=== PATIENT | female | born 1985 | race Two or more races ===

== ENCOUNTER 2018-03-22 20:08 | Emergency (ER) | payer OTHER ==
[~2018-03-22] VITALS: Ht 157.5 cm; Wt 77.1 kg
[2018-03-22 20:26] VITALS: BP 121/65
[2018-03-22] MEDS ORDERED: LIDOCAINE W/ EPINEPHRINE 2% INJ 20ML VIAL IJ ONE (21:00)
[2018-03-22] MEDS ORDERED: TETANUS-DIPTH-ACEL PERTUSSIS 0.5ML SYRG IM ONE (21:00)
== END 2018-03-22 21:38 | disposition home or self-care (01) ==
LOC: ER 20:08
DX: S61.211A Laceration without foreign body of left index finger without damage to nail, initial encounter (principal); W26.9XXA Contact with unspecified sharp object(s), initial encounter; Y93.89 Activity, other specified; Y99.8 Other external cause status; Y92.89 Other specified places as the place of occurrence of the external cause
CPT/HCPCS: 12001; 90471; 90715

== ENCOUNTER 2018-07-09 12:53 | Emergency (ER) | payer OTHER ==
[~2018-07-09] VITALS: Ht 157.5 cm; Wt 68.0 kg
[2018-07-09] MEDS ORDERED: ASPirin 81 mg TAB PO ONE (15:45)
[2018-07-09 16:29] LABS: Basophils # (auto) 0.1 uL; Basophils % (auto) 0.5 % (0.0-2.0); Eosinophils # (auto) 0.1 uL; Hematocrit 43.8 % (36.0-46.0); Hemoglobin 14.6 g/dL (12.2-16.2); Lymphocytes % (auto) 18.3 % (10.0-50.0); Mean Corpuscular Hemoglobin 30.7 pg (28.0-32.0); Mean Corpuscular Hgb Conc. 33.4 g/dL (32.0-36.0); Mean Corpuscular Volume 91.8 fL (80.0-100.0); Monocytes # (auto) 0.6 uL; Neutrophils # (auto) 8.4 uL; Neutrophils % (auto) 75.2 % (37.0-80.0); Platelet Count (auto) 312 10^3/uL (140-450); Red Blood Cells 4.77 10^6/uL (4.0-5.20); Red Cell Distribution Width 12.9 % (11.8-14.3); White Blood Cell 11.1 10^3/uL (4.4-10.8)
[2018-07-09 16:41] LABS: Alanine Aminotransferase 42 U/L (13-56); Albumin 4.1 g/dL (3.4-5.0); Anion Gap 7 (5-15); Aspartate Aminotransferase 30 U/L (15-37); BUN/Creatinine Ratio 13.5; Blood Urea Nitrogen 10 mg/dL (7-18); Calcium 9.4 mg/dL (8.5-10.1); Carbon Dioxide 27 mmol/L (21-32); Chloride 106 mmol/L (98-107); GFR African American 119 mL/min; GFR Non-African American 98 mL/min; Glucose 95 mg/dL (74-106); Potassium 3.8 mmol/L (3.5-5.1); Sodium 140 mmol/L (136-145)
[2018-07-09 16:45] LABS: Alkaline Phosphatase 80 U/L (45-117); Bilirubin, Total 0.4 mg/dL (0.2-1.0); Total Protein 8.5 g/dL (6.4-8.2)
[2018-07-09 16:58] LABS: INR 0.98 (0.9-1.15); Prothrombin Time 10.5 sec (9.27-12.13)
[2018-07-09] MEDS ORDERED: SUMAtriptan SUCCINATE 25 MG TAB PO ONE (21:00)
[2018-07-09] MEDS ORDERED: HYDROcodone-ACET 5/325MG TAB PO ONE (21:00)
[2018-07-09 21:59] VITALS: BP 120/72
== END 2018-07-09 22:16 | disposition home or self-care (01) ==
LOC: ER 12:53 → EDBD 12:53 → ER 22:16
DX: R51 Headache (principal); R41.3 Other amnesia; R42 Dizziness and giddiness
CPT/HCPCS: 36415; 70450; 80053; 84484; 85025; 85610; 85730

== ENCOUNTER 2020-01-27 12:18 | Emergency (ER) | payer OTHER ==
[~2020-01-27] VITALS: Ht 157.5 cm; Wt 76.2 kg
[2020-01-27 12:59] LABS: Urine Bacteria FEW /hpf (None Seen); Urine Blood Negative /uL (Negative); Urine Specific Gravity 1.004 (1.001-1.035); Urine WBC 2 /hpf (0 - 5)
[2020-01-27 13:37] LABS: Basophils # (auto) 0.1 10 ^3/uL (0-0.2); Basophils % (auto) 0.7 % (0.0-2.0); Eosinophils # (auto) 0.3 10 ^3/uL (0-0.8); Eosinophils % (auto) 3.1 % (0.0-7.0); Hematocrit 43.9 % (36.0-46.0); Hemoglobin 14.8 g/dL (12.2-16.2); Lymphocytes # (auto) 2.6 10 ^3/uL (0.4-5.4); Lymphocytes % (auto) 25.5 % (10.0-50.0); Mean Corpuscular Hemoglobin 30.7 pg (28.0-32.0); Mean Corpuscular Hgb Conc. 33.8 g/dL (32.0-36.0); Mean Corpuscular Volume 90.9 fL (80.0-100.0); Monocytes # (auto) 0.6 10 ^3/uL (0-1.3); Monocytes % (auto) 5.5 % (0.0-12.0); Neutrophils # (auto) 6.6 10 ^3/uL (1.6-8.6); Neutrophils % (auto) 65.2 % (37.0-80.0); Platelet Count (auto) 319 10^3/uL (140-450); Red Blood Cells 4.83 10^6/uL (4.0-5.20); Red Cell Distribution Width 12.8 % (11.8-14.3); White Blood Cell 10.1 10^3/uL (4.4-10.8)
[2020-01-27 13:57] LABS: Albumin 4.3 g/dL (3.4-5.0); BUN/Creatinine Ratio 10.1; Calcium 9.7 mg/dL (8.5-10.1); Potassium 3.3 mmol/L (3.5-5.1)
[2020-01-27 14:03] LABS: Bilirubin, Total 0.6 mg/dL (0.2-1.0); Total Protein 8.3 g/dL (6.4-8.2)
[2020-01-27 15:33] VITALS: BP 122/79
== END 2020-01-27 15:41 | disposition home or self-care (01) ==
LOC: ER 12:18
DX: K76.0 Fatty (change of) liver, not elsewhere classified (principal); K80.20 Calculus of gallbladder without cholecystitis without obstruction
CPT/HCPCS: 36415; 74176; 80053; 81001; 81025; 85025

== ENCOUNTER → 2020-03-08 | Day surgery (SDC) | payer OTHER ==
[2020-03-02 09:42] LABS: Urine Bacteria FEW /hpf (None Seen); Urine Blood Negative /uL (Negative); Urine Mucus FEW (None Seen); Urine Specific Gravity 1.025 (1.001-1.035); Urine WBC 16 /hpf (0 - 5)
[2020-03-02 09:56] LABS: INR 1.06 (0.9-1.15); Partial Thromboplastin Time 29.2 sec (23.0-31.2)
[2020-03-02 10:02] LABS: Basophils # (auto) 0.1 10 ^3/uL (0-0.2); Basophils % (auto) 0.8 % (0.0-2.0); Eosinophils # (auto) 0.3 10 ^3/uL (0-0.8); Eosinophils % (auto) 3.8 % (0.0-7.0); Hematocrit 44.3 % (36.0-46.0); Hemoglobin 14.6 g/dL (12.2-16.2); Lymphocytes # (auto) 2.2 10 ^3/uL (0.4-5.4); Lymphocytes % (auto) 26.7 % (10.0-50.0); Monocytes # (auto) 0.6 10 ^3/uL (0-1.3); Monocytes % (auto) 7.1 % (0.0-12.0); Neutrophils % (auto) 61.6 % (37.0-80.0); Nucleated Red Blood Cells % 0.4 %; Platelet Count (auto) 353 10^3/uL (140-450); Red Blood Cells 4.87 10^6/uL (4.0-5.20); Red Cell Distribution Width 12.5 % (11.8-14.3); White Blood Cell 8.2 10^3/uL (4.4-10.8)
[2020-03-02 10:03] LABS: Albumin 4.1 g/dL (3.4-5.0); Calcium 9.6 mg/dL (8.5-10.1); Potassium 3.9 mmol/L (3.5-5.1)
[2020-03-02 10:08] LABS: BUN/Creatinine Ratio 13.7; Bilirubin, Total 0.6 mg/dL (0.2-1.0); Total Protein 7.8 g/dL (6.4-8.2)
[~2020-03-08] VITALS: Ht 157.5 cm; Wt 73.9 kg
[~2020-03-08] MED LIST: BUPIVACAINE 0.25% INJ 50ML VIAL ONE; GLYCOPYRROLATE 0.2 MG/ML 1ML VIAL ONE; HEPARIN SODIUM (PORCINE) 5000 UNITS/ML 1ML VIAL ONE; HYDROmorphone HCL 2 MG/ML VL IV ONE; HYDROmorphone HCL 2 MG/ML VL IV PRN; IBUP600T27 PO; KETOROLAC TROMETH 30 MG/ML 1ML VIAL ONE; LIDOCAINE 1% (LOCAL ANESTH.) PF 5ml SDV ONE; LIDOCAINE W/ EPINEPHRINE 1% 20ML VIAL ONE; METOCLOPRAMIDE HCL 5MG/ml INJ 2ml VIAL ONE; MIDAZOLAM HCL 1MG/1ML-2 ML VIAL ONE; NALOXONE HCL 0.4 MG/ML VIAL IV PRN; NEOSTIGMINE 1 MG/ML INJ (10mg/10ML VIAL) ONE; ONDANSETRON HCL 4 MG/2 ML VIAL IV ONE; ONDANSETRON HCL 4 MG/2 ML VIAL IV PRN; PROPOFOL 10 MG/ML 20 ML IV ONE; ROCURONIUM 10MG/ML 10ML VIAL IV ONE; SUCCINYLCHOLINE CHLORIDE 20 MG/ML 10ML VIAL IV ONE; TRAM50TA2 PO; ceFAZolin 1GM/50ML 50 ML IV ONE; fentaNYL CITRATE 100 MCG/2 ML VL ONE
[2020-03-08 09:50] VITALS: BP 128/68
== END | disposition home or self-care (01) ==
LOC: SUR 06:00
PROVIDERS: ATTEND Surgery
DX: K80.10 Calculus of gallbladder with chronic cholecystitis without obstruction (principal); E66.9 Obesity, unspecified; K21.9 Gastro-esophageal reflux disease without esophagitis; Z98.890 Other specified postprocedural states; Z79.899 Other long term (current) drug therapy; Z20.828 Contact with and (suspected) exposure to other viral communicable diseases; Z68.29 Body mass index [BMI] 29.0-29.9, adult
CPT/HCPCS: 36415; 47562; 80053; 81001; 84702; 85025; 85610; 85730; 86850; 86900; 86901; J0330; J0690; J1170; J1644; J1885; J2250; J2405; J2704; J2765; J3010; J3490; U0003

== ENCOUNTER 2022-11-21 13:50 | Observation (INO) | payer OTHER ==
[~2022-11-21 13:50] MED LIST changes: -BUPIVACAINE 0.25% INJ 50ML VIAL ONE; -GLYCOPYRROLATE 0.2 MG/ML 1ML VIAL ONE; -HEPARIN SODIUM (PORCINE) 5000 UNITS/ML 1ML VIAL ONE; -HYDROmorphone HCL 2 MG/ML VL IV ONE; -HYDROmorphone HCL 2 MG/ML VL IV PRN; +IBUP-1454 PO; -IBUP600T27 PO; -KETOROLAC TROMETH 30 MG/ML 1ML VIAL ONE; -LIDOCAINE 1% (LOCAL ANESTH.) PF 5ml SDV ONE; -LIDOCAINE W/ EPINEPHRINE 1% 20ML VIAL ONE; -METOCLOPRAMIDE HCL 5MG/ml INJ 2ml VIAL ONE; -MIDAZOLAM HCL 1MG/1ML-2 ML VIAL ONE; -NALOXONE HCL 0.4 MG/ML VIAL IV PRN; -NEOSTIGMINE 1 MG/ML INJ (10mg/10ML VIAL) ONE; -ONDANSETRON HCL 4 MG/2 ML VIAL IV ONE; -ONDANSETRON HCL 4 MG/2 ML VIAL IV PRN; -PROPOFOL 10 MG/ML 20 ML IV ONE; -ROCURONIUM 10MG/ML 10ML VIAL IV ONE; -SUCCINYLCHOLINE CHLORIDE 20 MG/ML 10ML VIAL IV ONE; -ceFAZolin 1GM/50ML 50 ML IV ONE; -fentaNYL CITRATE 100 MCG/2 ML VL ONE
[2022-11-21] MEDS ORDERED: FAMO20TA10 GT (14:39)
[2022-11-21] MEDS ORDERED: PRO25I PO (14:44)
== END 2022-11-21 15:03 | disposition home or self-care (01) ==
LOC: UNDOADMOB 13:50 → LDRP 13:50
PROVIDERS: ADMIT Obstetrics & Gynecology; ATTEND Obstetrics & Gynecology
DX: O21.2 Late vomiting of pregnancy (principal); O99.282 Endocrine, nutritional and metabolic diseases complicating pregnancy, second trimester; E86.0 Dehydration; O99.891 Other specified diseases and conditions complicating pregnancy; M54.9 Dorsalgia, unspecified; Z3A.25 25 weeks gestation of pregnancy
CPT/HCPCS: 59025; 81002; 94760; G0378

== ENCOUNTER 2022-12-25 13:24 | Observation (INO) | payer OTHER ==
[~2022-12-25 13:24] MED LIST changes: +FAMO20TA10 GT; +PRO25I PO
[2022-12-25] MEDS ORDERED: PREN-96 PO (14:29)
== END 2022-12-25 14:42 | disposition home or self-care (01) ==
LOC: UNDOADMOB 13:24 → LDRP 13:24 → UNDODISOB 14:42
PROVIDERS: ADMIT Obstetrics & Gynecology; ATTEND Obstetrics & Gynecology
DX: O99.891 Other specified diseases and conditions complicating pregnancy (principal); M54.9 Dorsalgia, unspecified; Z3A.30 30 weeks gestation of pregnancy
CPT/HCPCS: 59025; 81002; 82962; G0378

== ENCOUNTER 2023-01-23 09:18 | Observation (INO) | payer OTHER ==
[~2023-01-23 09:18] MED LIST changes: +PREN-96 PO
== END 2023-01-23 13:21 | disposition home or self-care (01) ==
LOC: LDRP 11:39
PROVIDERS: ADMIT Obstetrics & Gynecology; ATTEND Obstetrics & Gynecology
DX: O24.419 Gestational diabetes mellitus in pregnancy, unspecified control (principal); Z3A.34 34 weeks gestation of pregnancy
CPT/HCPCS: 59025; 76818; 81002; 82948; G0378

== ENCOUNTER 2023-01-30 08:46 | Observation (INO) | payer OTHER ==
[~2023-01-30 08:46] MED LIST changes: -FAMO20TA10 GT; -IBUP-1454 PO; -PRO25I PO; -TRAM50TA2 PO
== END 2023-01-30 12:35 | disposition home or self-care (01) ==
LOC: LDRP 10:54 → UNDOADMOB 10:54 → LDRP 10:57 → UNDODISOB 12:35
PROVIDERS: ADMIT Obstetrics & Gynecology; ATTEND Obstetrics & Gynecology
DX: O24.419 Gestational diabetes mellitus in pregnancy, unspecified control (principal); O21.2 Late vomiting of pregnancy; Z3A.35 35 weeks gestation of pregnancy
CPT/HCPCS: 59025; 76818; 81002; 82962; 94760; G0378

== ENCOUNTER 2023-02-04 10:06 | Observation (INO) | payer OTHER ==
[~2023-02-04] VITALS: Ht 157.5 cm; Wt 75.7 kg
[2023-02-04] MEDS ORDERED: LACTATED RINGER'S 1,000 ML IV ONE (14:00)
== END 2023-02-04 16:57 | disposition home or self-care (01) ==
LOC: LDRP 10:06 → UNDOADMOB 10:06 → LDRP 10:15 → INTOOBSV 12:40 → OBSVTOIN 12:40 → UNDODISOB 16:57
PROVIDERS: ADMIT Obstetrics & Gynecology; ATTEND Obstetrics & Gynecology
DX: O62.9 Abnormality of forces of labor, unspecified (principal); O26.853 Spotting complicating pregnancy, third trimester; O47.03 False labor before 37 completed weeks of gestation, third trimester; Z3A.36 36 weeks gestation of pregnancy; Z79.899 Other long term (current) drug therapy
CPT/HCPCS: 59025; 76818; 81002; 82948; 82962; 94760; 96360; 96361; G0378

== ENCOUNTER 2023-02-07 14:30 | Observation (INO) | payer OTHER | END 2023-02-07 16:58 | disposition home or self-care (01) | LOC: LDRP 14:30 | PROVIDERS: ADMIT Obstetrics & Gynecology; ATTEND Obstetrics & Gynecology | DX: O62.9 Abnormality of forces of labor, unspecified (principal); Z3A.36 36 weeks gestation of pregnancy | CPT/HCPCS: 59025; 81002; 94760; G0378 ==

== ENCOUNTER 2023-02-11 08:28 | Observation (INO) | payer OTHER ==
[~2023-02-11] VITALS: Ht 157.5 cm; Wt 75.7 kg
== END 2023-02-11 09:57 | disposition home or self-care (01) ==
LOC: LDRP 08:28 → UNDOADMOB 08:28 → LDRP 08:34 → UNDODISOB 09:57
PROVIDERS: ADMIT Obstetrics & Gynecology; ATTEND Obstetrics & Gynecology
DX: O24.419 Gestational diabetes mellitus in pregnancy, unspecified control (principal); Z3A.37 37 weeks gestation of pregnancy
CPT/HCPCS: 59025; 76818; 81002; 82948; 94760; G0378

== ENCOUNTER 2023-02-12 01:10 | Observation (INO) | payer OTHER ==
[~2023-02-12] VITALS: Ht 157.5 cm; Wt 75.7 kg
== END 2023-02-12 02:46 | disposition home or self-care (01) ==
LOC: LDRP 01:10
PROVIDERS: ADMIT Obstetrics & Gynecology; ATTEND Obstetrics & Gynecology
DX: O62.9 Abnormality of forces of labor, unspecified (principal); O99.891 Other specified diseases and conditions complicating pregnancy; M54.9 Dorsalgia, unspecified; Z3A.37 37 weeks gestation of pregnancy; Z79.899 Other long term (current) drug therapy
CPT/HCPCS: 59025; 81002; 82948; 82962; 94760; G0378

== ENCOUNTER 2023-02-18 08:45 | Observation (INO) | payer OTHER | END 2023-02-18 11:01 | disposition home or self-care (01) | LOC: LDRP 08:45 | PROVIDERS: ADMIT Obstetrics & Gynecology; ATTEND Obstetrics & Gynecology | DX: O24.419 Gestational diabetes mellitus in pregnancy, unspecified control (principal); O26.893 Other specified pregnancy related conditions, third trimester; R11.0 Nausea; O62.9 Abnormality of forces of labor, unspecified; Z3A.38 38 weeks gestation of pregnancy | CPT/HCPCS: 59025; 76818; 81002; 82948; 82962; G0378 ==

== ENCOUNTER 2023-02-19 11:28 | Observation (INO) | payer OTHER | END 2023-02-19 13:30 | disposition home or self-care (01) | LOC: LDRP 11:28 | PROVIDERS: ADMIT Obstetrics & Gynecology; ATTEND Obstetrics & Gynecology | DX: O24.419 Gestational diabetes mellitus in pregnancy, unspecified control (principal); O46.93 Antepartum hemorrhage, unspecified, third trimester; Z3A.38 38 weeks gestation of pregnancy | CPT/HCPCS: 59025; 76818; 81002; 82948; 94760; G0378 ==

== ENCOUNTER 2023-02-22 12:32 | Inpatient (IN) | payer OTHER ==
[~2023-02-22] VITALS: Ht 157.5 cm; Wt 76.7 kg
[2023-02-22] MEDS ORDERED: CARBOPROST TROMETHAMINE 250 MCG/1ML VIAL IM PRN (14:00)
[2023-02-22] MEDS ORDERED: LACT. RINGERS/OXYTOCIN 20UNITS 500 ML IV ONE ×4 (14:00→21:45)
[2023-02-22] MEDS ORDERED: ONDANSETRON HCL 4 MG/2 ML VIAL IV PRN (14:00)
[2023-02-22] MEDS ORDERED: PHISODERM TOP SOLN 240ML BTL TOP PRN (14:00)
[2023-02-22] MEDS ORDERED: miSOPROStol 100 mcg TAB PR PRN (14:00)
[2023-02-22] MEDS ORDERED: METHYLERGONOVINE MALEATE 0.2 MG/ML AMP IM PRN (14:00)
[2023-02-22] MEDS ORDERED: miSOPROStol 100 mcg TAB SL PRN (14:00)
[2023-02-22] MEDS ORDERED: PROMETHAZINE HCL 25 MG/ML 1ML IV PRN (14:00)
[2023-02-22] MEDS ORDERED: LIDOCAINE 2%HCL (LOCAL ANESTH.) INJ 20ML MDV IJ PRN (14:00)
[2023-02-22] MEDS ORDERED: DERMOPLAST 60ML BOTTLE TOP PRN (14:00)
[2023-02-22 14:15] LABS: Fern Testing Positive
[2023-02-22 14:29] LABS: Basophils # (auto) 0 10 ^3/uL (0-0.2); Basophils % (auto) 0.2 % (0.0-2.0); Eosinophils # (auto) 0.1 10 ^3/uL (0-0.8); Eosinophils % (auto) 0.9 % (0.0-7.0); Hemoglobin 11.5 g/dL (12.2-16.2); Lymphocytes # (auto) 1.5 10 ^3/uL (0.4-5.4); Lymphocytes % (auto) 13.8 % (10.0-50.0); Mean Corpuscular Hemoglobin 29.2 pg (28.0-32.0); Mean Corpuscular Hgb Conc. 32.9 g/dL (32.0-36.0); Mean Corpuscular Volume 88.7 fL (80.0-100.0); Monocytes # (auto) 0.8 10 ^3/uL (0-1.3); Monocytes % (auto) 7.8 % (0.0-12.0); Neutrophils # (auto) 8.3 10 ^3/uL (1.6-8.6); Neutrophils % (auto) 77.3 % (37.0-80.0); Red Blood Cells 3.94 10^6/uL (4.0-5.20); Red Cell Distribution Width 14.7 % (11.8-14.3); White Blood Cell 10.8 10^3/uL (4.4-10.8)
[2023-02-22 14:49] LABS: Albumin 4.1 g/dL (3.2-4.8); Alkaline Phosphatase 126 U/L (46-116); Anion Gap 8 (5-15); Aspartate Aminotransferase 11 U/L (13-40); BUN/Creatinine Ratio 8.9 (10.0-20.0); Bilirubin, Total 0.4 mg/dL (0.2-1.0); Blood Urea Nitrogen 5 mg/dL (9-23); Calcium 9.1 mg/dL (8.5-10.1); Carbon Dioxide 23 mmol/L (20-30); Chloride 107 mmol/L (98-107); Glucose 110 mg/dL (74-106); Potassium 3.4 mmol/L (3.5-5.1); Sodium 138 mmol/L (136-145); Total Protein 6.7 g/dL (5.7-8.2)
[2023-02-22 14:50] LABS: INR 0.98 (0.9-1.15); Partial Thromboplastin Time 27.9 SEC (24.5-34.5); Prothrombin Time 10.3 sec (9.3-11.8)
[2023-02-22 14:54] LABS: Amphetamine Screen, Urine Neg (NEGATIVE); Barbiturate Scree,Urine Neg (NEGATIVE); Benzodiazephine Screen, Urine Neg (NEGATIVE); Cannabinoid Screen, Urine Neg (NEGATIVE); Cocaine Screen, Urine Neg (NEGATIVE); Opiate Scree,Urine Neg (NEGATIVE); Phencyclidine Screen, Urine Neg (NEGATIVE)
[2023-02-22 14:58] LABS: Urine Bacteria FEW /hpf (None Seen); Urine Blood Negative /uL (Negative); Urine Clarity HAZY (Clear); Urine Color Yellow (Yellow); Urine Mucus FEW (None Seen); Urine Protein, UAD 1+ (Negative); Urine Specific Gravity 1.028 (1.001-1.035); Urine WBC 48 /hpf (0 - 5); Urine pH 6.5 (5.0-8.0)
[2023-02-22 14:58] LABS: Alanine Aminotransferase < 9 U/L (7-40)
[2023-02-22] MEDS ORDERED: NALOXONE HCL 0.4 MG/ML VIAL IV ONE (15:45)
[2023-02-22] MEDS ORDERED: ROPIVACAINE HCL 200 ML EPI SCH ×2 (15:45)
[2023-02-22] MEDS ORDERED: ePHEDrine SULFATE 50 MG/ML AMP IV ONE (15:45)
[2023-02-22] MEDS ORDERED: LACTATED RINGER'S 1,000 ML IV ONE (15:45)
[2023-02-22] MEDS ORDERED: LACTATED RINGER'S 500 ML IV ONE (15:45)
[2023-02-22] MEDS ORDERED: LACT. RINGERS/OXYTOCIN 20UNITS 1,000 ML IV SCH (16:00)
[2023-02-22] MEDS ORDERED: TERBUTALINE SULFATE 1 MG/ML 1ML VIAL SC PRN (16:00)
[2023-02-22] MEDS: WITCH HAZEL-GLYCERIN PAD TOP PRN (17:09)
[2023-02-22] MEDS: LACTATED RINGER'S 1,000 ML IV SCH ×2 (17:09→18:48)
[2023-02-22] MEDS ORDERED: ACETAMINOPHEN 325 MG TAB PO PRN (21:15)
[2023-02-22] MEDS ORDERED: ONDANSETRON ODT 4 MG TAB PO PRN (21:15)
[2023-02-22] MEDS ORDERED: DOCUSATE SOD 100 MG CAP PO SCH (22:00)
[2023-02-22] MEDS ORDERED: DIPHENOXYLATE W/ATROPINE 2.5 MG TAB PO SCH (22:00)
[2023-02-23] MEDS: IBUPROFEN 800 MG TAB PO SCH ×5 (00:44→23:39)
[2023-02-23 02:40] VITALS: BP 116/88; PULSE 77; RESP 17; TEMP 98.4; O2SAT 98
[2023-02-23 05:07] LABS: RPR Non Reactive (Non Reactive)
[2023-02-23 07:20] VITALS: BP 108/61; PULSE 64; RESP 17; TEMP 97.9; O2SAT 96
[2023-02-23] MEDS: POTASSIUM CHL 20 Meq TABLET PO SCH ×2 (10:10→21:46)
[2023-02-23 11:00] VITALS: BP 116/76; PULSE 74; RESP 16; TEMP 98.7; O2SAT 97
[2023-02-23 15:00] VITALS: BP 118/63; PULSE 66; RESP 16; TEMP 98.8; O2SAT 99
[2023-02-23] MEDS: WITCH HAZEL-GLYCERIN PAD TOP PRN (15:07)
[2023-02-23 18:55] VITALS: BP 119/68; PULSE 79; RESP 18; TEMP 97.8; O2SAT 98
[2023-02-23 23:30] VITALS: BP 113/60; PULSE 78; RESP 18; TEMP 98.6; O2SAT 98
[2023-02-24 03:00] VITALS: BP 101/58; PULSE 72; RESP 18; TEMP 97.7; O2SAT 98
[2023-02-24] MEDS: IBUPROFEN 800 MG TAB PO SCH (05:26)
[2023-02-24 07:00] VITALS: BP 114/60; PULSE 74; RESP 16; TEMP 97.3; O2SAT 96
[2023-02-26 22:06] LABS: Treponema pallidum Ab (FTA-Ab) Non Reactive (Non Reactive)
== END 2023-02-24 09:40 | disposition home or self-care (01) | DRG 807 ==
LOC: LDRP 12:32 → OBSVTOIN 13:51 → LDRP 20:01
PROVIDERS: ADMIT Obstetrics & Gynecology; ATTEND Obstetrics & Gynecology
PROC: 10E0XZZ Delivery of Products of Conception, External Approach (ICD-10-PCS; principal; 2023-02-22)
PROC: 3E0R3BZ Introduction of Anesthetic Agent into Spinal Canal, Percutaneous Approach (ICD-10-PCS; 2023-02-22)
PROC: 00HU33Z Insertion of Infusion Device into Spinal Canal, Percutaneous Approach (ICD-10-PCS; 2023-02-22)
DX: O24.429 Gestational diabetes mellitus in childbirth, unspecified control (principal); Z37.0 Single live birth; Z3A.38 38 weeks gestation of pregnancy; O42.92 Full-term premature rupture of membranes, unspecified as to length of time between rupture and onset of labor
CPT/HCPCS: 36415; 59025; 59409; 62282; 80053; 80307; 81001; 81002; 82962; 84112; 85025; 85610; 85730; 86592; 86850; 86900; 86901; 94760; 96360; 96361; 96365; G0378; J2590

== ENCOUNTER → 2023-09-26 | Outpatient (CLI) | payer OTHER ==
[2023-09-26 13:18] LABS: Basophils # (auto) 0.1 10 ^3/uL (0-0.2); Basophils % (auto) 0.4 % (0.0-2.0); Eosinophils # (auto) 0.2 10 ^3/uL (0-0.8); Eosinophils % (auto) 1.6 % (0.0-7.0); Hematocrit 37.6 % (36.0-46.0); Hemoglobin 12.3 g/dL (12.2-16.2); Lymphocytes # (auto) 2.3 10 ^3/uL (0.4-5.4); Lymphocytes % (auto) 17.1 % (10.0-50.0); Mean Corpuscular Hemoglobin 29.4 pg (28.0-32.0); Mean Corpuscular Hgb Conc. 32.8 g/dL (32.0-36.0); Mean Corpuscular Volume 89.6 fL (80.0-100.0); Monocytes # (auto) 0.6 10 ^3/uL (0-1.3); Monocytes % (auto) 4.2 % (0.0-12.0); Neutrophils # (auto) 10.5 10 ^3/uL (1.6-8.6); Neutrophils % (auto) 76.7 % (37.0-80.0); Red Blood Cells 4.19 10^6/uL (4.0-5.20); Red Cell Distribution Width 13.6 % (11.8-14.3); White Blood Cell 13.6 10^3/uL (4.4-10.8)
[2023-09-26 14:20] LABS: Amphetamine Screen, Urine Neg (NEGATIVE); Benzodiazephine Screen, Urine Neg (NEGATIVE)
[2023-09-26 14:21] LABS: Barbiturate Scree,Urine Neg (NEGATIVE); Cannabinoid Screen, Urine Neg (NEGATIVE); Cocaine Screen, Urine Neg (NEGATIVE); Opiate Scree,Urine Neg (NEGATIVE); Phencyclidine Screen, Urine Neg (NEGATIVE)
[2023-09-26 14:24] LABS: Albumin 4.3 g/dL (3.2-4.8); Alkaline Phosphatase 56 U/L (46-116); Anion Gap 8 (5-15); Aspartate Aminotransferase < 8 U/L (13-40); Calcium 10.3 mg/dL (8.5-10.1); Carbon Dioxide 23 mmol/L (20-30); Chloride 106 mmol/L (98-107); Cholesterol 134 mg/dL (< 200); Glucose 137 mg/dL (74-106); LDL Cholesterol 79 mg/dL (< 100); Potassium 3.2 mmol/L (3.5-5.1); Sodium 137 mmol/L (136-145); Triglycerides 178 mg/dL (< 150)
[2023-09-26 14:25] LABS: Bilirubin, Total 0.4 mg/dL (0.2-1.0); HDL Cholesterol 35 mg/dL (40-59); Total Protein 7.1 g/dL (5.7-8.2)
[2023-09-26 14:28] LABS: Thyroid Stimulating Hormone 0.09 uIU/mL (0.55-4.78)
[2023-09-26 14:36] LABS: Beta HCG, Quantitative 79403.1 mIU/mL (1.5-4.2)
[2023-09-26 14:53] LABS: Alanine Aminotransferase < 9 U/L (7-40); BUN/Creatinine Ratio 9.4 (10.0-20.0); Blood Urea Nitrogen < 5 mg/dL (9-23)
[2023-09-27 07:07] LABS: Varicella Zoster IgG Antibody 226 index (Immune >165)
[2023-09-27 23:06] LABS: Chlamydia Trachomatis, NAA Negative (Negative); Neisseria gonorrhoeae, NAA Negative (Negative)
== END | disposition home or self-care (01) ==
LOC: LAB 12:49
PROVIDERS: ATTEND Obstetrics & Gynecology
DX: Z34.80 Encounter for supervision of other normal pregnancy, unspecified trimester (principal); Z31.430 Encounter of female for testing for genetic disease carrier status for procreative management; Z36.0 Encounter for antenatal screening for chromosomal anomalies; Z79.899 Other long term (current) drug therapy; N39.0 Urinary tract infection, site not specified; Z3A.00 Weeks of gestation of pregnancy not specified
CPT/HCPCS: 36415; 80053; 80061; 80307; 82951; 83036; 84439; 84443; 84702; 85025; 86703; 86762; 86787; 86850; 86900; 86901; 87086; 87340

== ENCOUNTER → 2023-10-22 | Outpatient (CLI) | payer OTHER | END | disposition home or self-care (01) | LOC: LAB 09:57 | PROVIDERS: ATTEND Obstetrics & Gynecology | DX: Z34.80 Encounter for supervision of other normal pregnancy, unspecified trimester (principal) | CPT/HCPCS: 86703 ==

== ENCOUNTER → 2023-10-25 | Outpatient (CLI) | payer OTHER | END | disposition home or self-care (01) | LOC: LAB 10:44 | PROVIDERS: ATTEND Obstetrics & Gynecology | DX: Z34.80 Encounter for supervision of other normal pregnancy, unspecified trimester (principal); Z3A.21 21 weeks gestation of pregnancy | CPT/HCPCS: 36415; 84436; 84443 ==

== ENCOUNTER → 2024-01-31 | Outpatient (CLI) | payer OTHER ==
[2024-01-31 14:25] LABS: Free T3 2.82 pg/mL (2.3-4.2)
[2024-01-31 14:26] LABS: Free T4 (Free Thyroxine) 1.02 ng/dL (0.89-1.76); T3 Total 1.75 ng/mL (0.60-1.81)
== END | disposition home or self-care (01) ==
LOC: LAB 13:02
PROVIDERS: ATTEND Obstetrics & Gynecology
DX: Z34.80 Encounter for supervision of other normal pregnancy, unspecified trimester (principal)
CPT/HCPCS: 36415; 84439; 84443; 84445; 84480; 84481

== ENCOUNTER 2024-02-14 11:35 | Observation (INO) | payer OTHER ==
[2024-02-14] MEDS ORDERED: METF-370 PO (12:28)
== END 2024-02-14 12:54 | disposition home or self-care (01) ==
LOC: LDRP 11:35
PROVIDERS: ADMIT Obstetrics & Gynecology; ATTEND Obstetrics & Gynecology
DX: O24.419 Gestational diabetes mellitus in pregnancy, unspecified control (principal); O26.893 Other specified pregnancy related conditions, third trimester; N89.8 Other specified noninflammatory disorders of vagina; Z3A.32 32 weeks gestation of pregnancy
CPT/HCPCS: 59025; 76818; 81002; 82948; 82962; 94760; G0378

== ENCOUNTER 2024-02-18 08:44 | Observation (INO) | payer OTHER ==
[~2024-02-18 08:44] MED LIST changes: +METF-370 PO
== END 2024-02-18 11:44 | disposition home or self-care (01) ==
LOC: LDRP 08:44
PROVIDERS: ADMIT Obstetrics & Gynecology; ATTEND Obstetrics & Gynecology
DX: O24.419 Gestational diabetes mellitus in pregnancy, unspecified control (principal); Z3A.32 32 weeks gestation of pregnancy; Z79.899 Other long term (current) drug therapy
CPT/HCPCS: 59025; 76818; 81002; 82948; 82962; 94760; G0378

== ENCOUNTER 2024-02-21 09:54 | Observation (INO) | payer OTHER ==
[~2024-02-21 09:54] MED LIST changes: -ASPI-543 PO
== END 2024-02-21 10:31 | disposition home or self-care (01) ==
LOC: LDRP 09:54
PROVIDERS: ADMIT Obstetrics & Gynecology; ATTEND Obstetrics & Gynecology
DX: O24.419 Gestational diabetes mellitus in pregnancy, unspecified control (principal); Z3A.33 33 weeks gestation of pregnancy; Z87.891 Personal history of nicotine dependence
CPT/HCPCS: 59025; 76818; 81002; 82962; 94760; G0378

== ENCOUNTER → 2024-02-21 | Outpatient (CLI) | payer OTHER ==
[~2024-02-21] MED LIST changes: +ASPI-543 PO
[2024-02-21 13:34] LABS: T3 Total 1.72 ng/mL (0.60-1.81)
[2024-02-21 13:35] LABS: Free T4 (Free Thyroxine) 1.1 ng/dL (0.89-1.76)
== END | disposition home or self-care (01) ==
LOC: LAB 11:46
PROVIDERS: ATTEND Obstetrics & Gynecology
DX: Z34.00 Encounter for supervision of normal first pregnancy, unspecified trimester (principal)
CPT/HCPCS: 36415; 84439; 84443; 84480

== ENCOUNTER 2024-02-25 10:55 | Observation (INO) | payer OTHER ==
[2024-02-25] MEDS ORDERED: ASPI-543 PO (11:39)
--- NOTE | 2024-02-25 11:53 | DVH ---
CLINICAL HISTORY: Gestational diabetes. COMPARISON: US BIOPHYSICAL PROFILE on DOS: 02/21/24, US BIOPHYSICAL PROFILE on DOS: 02/18/24, US BIOPH YSICAL PROFILE on DOS: 02/14/24 TECHNIQUE: biophysical profile was performed. Transabdominal sonographic images of the fetus we re obtained. FINDINGS: The fetus is in cephalic position. heart rate measures 161 BPM. Amniotic fluid index measures 18.4 cm. The placenta is fundal in position. No evidence of placenta previa or abruption. BPP profile is an overall score of 8/8, with 2/2 points for breathing, with at least one episode of breathing over a 30 second duration during a 30 minute observation, 2/2 points for m ovements, with 3 or more discrete body or limb movements, 2/2 points for tone, with one or more episodes of extremity extension with return to flexion, or opening and closing of hand, and 2/ 2 points for amniotic fluid, with at least 1 pocket of amniotic fluid that measures 2 cm in 2 perpend icular planes. IMPRESSION: BPP score of 8/8.
--- NOTE | 2024-02-25 19:55 | DVHDS2 ---
Physician Discharge Progress N Final Diagnosis: testing for GDM, A2 Operations or Procedures: Operations or Procedures 38yo IUP@33.4wks, +FM, denies UCs/VB VSS UA wnl NST reactive BPP wnl FKC/PTL precautions reviewed Condition on Discharge: Stable Disposition: Home Discharge Instructions: Diet: Consistent carbohydrate Activity: No Restrictions, As Tolerated Medications: see med list Follow Up Care: Specialist: f/u in 3 days Discharge Statement: "Patient was advised to return to the ER or call 911 if any headaches, dizziness, shortness of breath, chest pain, abdominal pain, bleeding, fevers, or worsening of medical condition. Patient was counseled about treatment plan, medications, possible side effects, patientverbalized understanding. All questions were answered to the best of my ability. This discharge took greater then 30 minutes in planning, reviewing do cumentation, counseling the patient, and discussing with other team members." SURJIT HDZ Feb 25, 2024 19:55
== END 2024-02-25 12:45 | disposition home or self-care (01) ==
LOC: UNDOADMOB 10:55 → LDRP 10:55 → UNDODISOB 12:45
PROVIDERS: ADMIT Obstetrics & Gynecology; ATTEND Obstetrics & Gynecology
DX: O24.419 Gestational diabetes mellitus in pregnancy, unspecified control (principal); O62.9 Abnormality of forces of labor, unspecified; Z3A.33 33 weeks gestation of pregnancy; Z79.899 Other long term (current) drug therapy
CPT/HCPCS: 59025; 76818; 81002; 82948; 82962; 94760; G0378

== ENCOUNTER 2024-02-28 10:02 | Observation (INO) | payer OTHER ==
[~2024-02-28 10:02] MED LIST changes: +ASPI-543 PO
--- NOTE | 2024-02-28 10:56 | DVH ---
BIOPHYSICAL PROFILE HISTORY: GDMA2 TECHNIQUE: Multiple transabdominal real-time grayscale sonographic images through the gravid uterus of the fetus with duplex Doppler color flow and M-mode spectral analysis FINDINGS: BIOPHYSICAL PROFILE: breathing score: 2 movement score: 2 tone score: 2 Quantitative MIKE score: 2 (MIKE: 19.7 Cm.) Total score: 8 The cervix not well visualized. Single live fetus in cephalic presentation. heart rate 148 beats per minute. Posterior placenta without previa or abruption IMPRESSION: Biophysical profile score: 8
--- NOTE | 2024-02-28 16:57 | DVHDS2 ---
Physician Discharge Progress N Final Diagnosis: GDMA2 Operations or Procedures: Operations or Procedures NST/BPP/MIKE Accuchjo Commentary: Commentary status reassuring Condition on Discharge: Stable Disposition: Home Discharge Instructions: Diet: Consistent carbohydrate Activity: No Restrictions, As Tolerated Follow Up/Referral: As scheduled 2x/wk NST/BPP Medications: N/A Follow Up Care: Discharge Statement: "Patient was advised to return to the ER or call 911 if any headaches, dizziness, shortness of breath, chest pain, abdominal pain, bleeding, fevers, or worsening of medical condition. Patient was counseled about treatment plan, medications, possible side effects, patientverbalized understanding. All questions were answered to the best of my ability. This discharge took greater then 30 minutes in planning, reviewing documentation , counseling the patient, and discussing with other team members." MALLORY ROMERO DO Feb 28, 2024 16:57
== END 2024-02-28 11:32 | disposition home or self-care (01) ==
LOC: LDRP 10:02
PROVIDERS: ADMIT Obstetrics & Gynecology; ATTEND Obstetrics & Gynecology
DX: O24.419 Gestational diabetes mellitus in pregnancy, unspecified control (principal); Z3A.34 34 weeks gestation of pregnancy; Z87.891 Personal history of nicotine dependence
CPT/HCPCS: 59025; 76818; 81002; 82948; 82962; G0378

== ENCOUNTER 2024-03-02 12:52 | Observation (INO) | payer OTHER ==
--- NOTE | 2024-03-02 15:07 | DVH ---
Procedure: US BIOPHYSICAL PROFILE 03/02/2024 02:18 PM Indication:GDMA2. Comparison: US BIOPHYSICAL PROFILE on DOS: 02/28/24, US BIOPHYSICAL PROFILE on DOS: 02/25/24, US BIOPHY SICAL PROFILE on DOS: 02/21/24 Technique: Sonogram of gravid uterus utilizing grayscale and color techniques. FINDINGS: Single living intrauterine gestation. Presentation: Cephalic Placenta: Fundal, posterior, grade 2 without previa or abruption heart rate: 152 bpm MIKE: 19 cm, DVP: 5.4 cm Maternal cervix: Not visualized Biophysical Profile: breathing score: 2 movement score: 2 tone: 2 Quantitative MIKE score: 2 Total score: 8/8 IMPRESSION: 1. Single living as above. 2. Biophysical profile score: 8/8.
--- NOTE | 2024-03-02 17:53 | DVHDS2 ---
Physician Discharge Progress N Final Diagnosis: GDMA2. Operations or Procedures: Operations or Procedures NST/BPP/MIKE Accucheck Commentary: Commentary status reassuring Condition on Discharge: Stable Disposition: Home Discharge Instructions: Diet: Consistent carbohydrate Activity: No Restrictions, As Tolerated Follow Up/Referral: As scheduled Medications: N/A Follow Up Care: Discharge Statement: "Patient was advised to return to the ER or call 911 if any headaches, dizziness, shortness of breath, chest pain, abdominal pain, bleeding, fevers, or worsening of medical condition. Patient was counseled about treatment plan, medications, possible side effects, patientverbalized understanding. All questions were answered to the best of my ability. This discharge took greater then 30 minutes in planning, reviewing documentation, counseling the patient, and discussing with other team members." MALLORY ROMERO DO Mar 02, 2024 17:53
== END 2024-03-02 15:49 | disposition home or self-care (01) ==
LOC: LDRP 14:01
PROVIDERS: ADMIT Obstetrics & Gynecology; ATTEND Obstetrics & Gynecology
DX: O24.419 Gestational diabetes mellitus in pregnancy, unspecified control (principal); Z3A.34 34 weeks gestation of pregnancy; Z79.899 Other long term (current) drug therapy
CPT/HCPCS: 59025; 76818; 81002; 82948; 82962; 94760; G0378

== ENCOUNTER 2024-03-05 13:45 | Observation (INO) | payer OTHER ==
--- NOTE | 2024-03-05 15:06 | DVH ---
BIOPHYSICAL PROFILE HISTORY: GDMA2 TECHNIQUE: Multiple transabdominal real-time grayscale sonographic images through the gravid uterus of the fetus with duplex Doppler color flow and M-mode spectral analysis FINDINGS: BIOPHYSICAL PROFILE: breathing score: 2 movement score: 2 tone score: 2 Quantitative MIKE score: 2 (MIKE: 14.0 Cm.) Total score: 8/8 [Single live fetus in cephalic presentation. heart rate 133 beats per minute. Grade 2-3 placenta without previa or abruption Single live fetus at 34 weeks 6 days Biophysical profile score 8/8 corresponding to an REX of 04/10/2024 IMPRESSION: 1. Biophysical profile score: 8/8
--- NOTE | 2024-03-05 19:03 | DVHDS2 ---
Physician Discharge Progress N Final Diagnosis: GDM Operations or Procedures: Operations or Procedures NST,SONO Condition on Discharge: Good Disposition: Home Discharge Instructions: Diet: Consistent carbohydrate Activity: No Restrictions, As Tolerated Follow Up/Referral: [facility]/BPP 2x weekly as scheduled. NEXT APPT: 03/09/24Saturday @ 10:00 Please go to the nearest hospital for urgent concerns. Medications: NA Follow Up Care: Specialist: 3D Discharge Statement: "Patient was advised to return to the ER or call 911 if any headaches, dizziness, shortness of breath, chest pain, abdominal pain, bleeding, fevers, or worsening of medical condition. Patient was counseled about treatment plan, medications, possible side effects, patientverbalized understanding. All questions were answered to the best of my ability. This discharge took greater then 30 minutes in planning, reviewing documentation, counseling the patient, and discussing with other team members." MARITO ODELL DO Mar 05, 2024 19:03
== END 2024-03-05 15:24 | disposition home or self-care (01) ==
LOC: LDRP 13:45
PROVIDERS: ADMIT Obstetrics & Gynecology; ATTEND Obstetrics & Gynecology
DX: O24.419 Gestational diabetes mellitus in pregnancy, unspecified control (principal); O62.9 Abnormality of forces of labor, unspecified; Z3A.34 34 weeks gestation of pregnancy; Z87.891 Personal history of nicotine dependence
CPT/HCPCS: 59025; 76818; 81002; 82948; 82962; 94760; G0378

== ENCOUNTER 2024-03-09 08:19 | Observation (INO) | payer OTHER ==
--- NOTE | 2024-03-09 10:53 | DVH ---
BIOPHYSICAL PROFILE HISTORY: GDMA2 TECHNIQUE: Multiple transabdominal real-time grayscale sonographic images through the gravid uterus of the fetus with duplex Doppler color flow and M-mode spectral analysis FINDINGS: BIOPHYSICAL PROFILE: breathing score: 8 movement score: 8 tone score: 8 Quantitative MIKE score: 8 (MIKE: 17.2 Cm.) Total score: 8/8 Single live fetus in cephalic presentation. heart rate 157 beats per minute. Fundal placenta without previa or abruption IMPRESSION: 1. Biophysical profile score: 8/8.
--- NOTE | 2024-03-10 12:56 | DVHDS2 ---
Physician Discharge Progress N Final Diagnosis: gdm Operations or Procedures: Operations or Procedures nst,sono Condition on Discharge: Good Disposition: Home Discharge Instructions: Diet: Consistent carbohydrate Activity: Light activity Medications: na Follow Up Care: Specialist: 3d Discharge Statement: "Patient was advised to return to the ER or call 911 if any headaches, dizziness, shortness of breath, chest pain, abdominal pain, bleeding, fevers, or worsening of medical condition. Patient was counseled about treatment plan, medications, possible side effects, patientverbalized understanding. All questions were answered to the best of my ability. This discharge took greater then 30 minutes in planning, reviewing documentation, counseling the patient, and discussing with other team members." MARITO ODELL DO Mar 10, 2024 12:56
== END 2024-03-09 11:08 | disposition home or self-care (01) ==
LOC: LDRP 10:07
PROVIDERS: ADMIT Obstetrics & Gynecology; ATTEND Obstetrics & Gynecology
DX: O24.419 Gestational diabetes mellitus in pregnancy, unspecified control (principal); Z3A.35 35 weeks gestation of pregnancy; Z79.899 Other long term (current) drug therapy; Z98.890 Other specified postprocedural states
CPT/HCPCS: 59025; 76818; 81002; 82948; 82962; 94760; G0378

== ENCOUNTER 2024-03-13 09:45 | Observation (INO) | payer OTHER ==
--- NOTE | 2024-03-13 10:40 | DVH ---
BIOPHYSICAL PROFILE HISTORY: GDMA2 Comparison Study: 03/09/2024 TECHNIQUE: Multiple real-time grayscale sonographic images through the gravid uterus of the fetus wi th duplex Doppler color flow and M-mode spectral analysis FINDINGS: BIOPHYSICAL PROFILE: breathing score: 2 movement score: 2 tone score: 2 Quantitative MIKE score: 2 (MIKE: 14.4 Cm.) Total score: 8 The cervix is not visualized Single live fetus in cephalic presentation. heart rate 143 beats per minute. Posterior placenta without previa or abruption IMPRESSION: Biophysical profile score: 8
--- NOTE | 2024-03-13 17:06 | DVHDS2 ---
Physician Discharge Progress N Final Diagnosis: GDMA2 Operations or Procedures: Operations or Procedures NST/BPP/MIKE Accucheck ALL the above WNL Condition on Discharge: Stable Disposition: Home Discharge Instructions: Diet: Consistent carbohydrate Activity: No Restrictions, As Tolerated Follow Up/Referral: as scheduled Medications: N/A Follow Up Care: Discharge Statement: "Patient was advised to return to the ER or call 911 if any headaches, dizziness, shortness of breath, chest pain, abdominal pain, bleeding, fevers, or worsening of medical condition. Patient was counseled about treatment plan, medications, possible side effects, patientverbalized understanding. All questions were answered to the best of my ability. This discharge took greater then 30 minutes in planning, reviewing documentation, counseling the patient, and discussing with other team members." MALLORY ROMERO DO Mar 13, 2024 17:06
== END 2024-03-13 11:52 | disposition home or self-care (01) ==
LOC: LDRP 09:45
PROVIDERS: ADMIT Obstetrics & Gynecology; ATTEND Obstetrics & Gynecology
DX: O24.419 Gestational diabetes mellitus in pregnancy, unspecified control (principal); Z3A.36 36 weeks gestation of pregnancy; Z87.891 Personal history of nicotine dependence; Z79.899 Other long term (current) drug therapy
CPT/HCPCS: 59025; 76818; 81002; 82948; 82962; 94760

== ENCOUNTER 2024-03-18 12:00 | Observation (INO) | payer OTHER ==
--- NOTE | 2024-03-18 14:45 | DVH ---
BIOPHYSICAL PROFILE HISTORY: GDMA2 TECHNIQUE: Multiple transabdominal real-time grayscale sonographic images through the gravid uterus of the fetus with duplex Doppler color flow and M-mode spectral analysis FINDINGS: BIOPHYSICAL PROFILE: breathing score: 2 movement score: 2 tone score: 2 Quantitative MIKE score: 2 (MIKE: 11.7 Cm.) Total score: 8/8 Single live fetus in cephalic presentation. heart rate 129 beats per minute. Fundal / posterior placenta without previa or abruption IMPRESSION: 1. Biophysical profile score: 8/8 HS:Y
--- NOTE | 2024-03-19 09:47 | DVHDS2 ---
Physician Discharge Progress N Final Diagnosis: PTL, Operations or Procedures: Operations or Procedures NST,CELESTONE Condition on Discharge: Good Disposition: Home Discharge Instructions: Diet: Regular Activity: No Restrictions, As Tolerated Medications: NA Follow Up Care: Specialist: 3D Discharge Statement: "Patient was advised to return to the ER or call 911 if any headaches, dizziness, shortness of breath, chest pain, abdominal pain, bleeding, fevers, or worsening of medical condition. Patient was counseled about treatment plan, medications, possible side effects, patientverbalized understanding. All questions were answered to the best of my ability. This discharge took greater then 30 minutes in planning, reviewing documentation, counseling the patient, and discussing with other team members." MARITO ODELL DO Mar 19, 2024 09:47
== END 2024-03-18 14:48 | disposition home or self-care (01) ==
LOC: UNDOADMOB 12:00 → LDRP 12:00
PROVIDERS: ADMIT Obstetrics & Gynecology; ATTEND Obstetrics & Gynecology
DX: O60.03 Preterm labor without delivery, third trimester (principal); O24.419 Gestational diabetes mellitus in pregnancy, unspecified control; O99.891 Other specified diseases and conditions complicating pregnancy; M54.9 Dorsalgia, unspecified; Z3A.36 36 weeks gestation of pregnancy; Z87.891 Personal history of nicotine dependence; Z79.899 Other long term (current) drug therapy
CPT/HCPCS: 59025; 76818; 81002; 82948; G0378

== ENCOUNTER 2024-03-22 02:26 | Observation (INO) | payer OTHER ==
--- NOTE | 2024-03-22 10:03 | DVH ---
BIOPHYSICAL PROFILE HISTORY: GDMA2 Comparison Study: None available at time of dictation. TECHNIQUE: Multiple real-time grayscale sonographic images through the gravid uterus of the fetus wi th duplex Doppler color flow and M-mode spectral analysis FINDINGS: BIOPHYSICAL PROFILE: breathing score: 2 movement score: 2 tone score: 2 Quantitative MIKE score: 2 (MIKE: 13.4 Cm.) Total score: 8/8 The cervix is not seen Single live fetus in cephalic presentation. heart rate 134 beats per minute. Right lateral placenta without previa or abruption Biophysical profile score 8/8 corresponding to an REX of 04/10/24 IMPRESSION: Biophysical profile score: 8/8
--- NOTE | 2024-03-25 07:52 | DVHDS2 ---
Physician Discharge Progress N Final Diagnosis: gdm Operations or Procedures: Operations or Procedures nst,sono Condition on Discharge: Good Disposition: Home Discharge Instructions: Diet: Regular Activity: No Restrictions, As Tolerated Medications: na Follow Up Care: Specialist: 2d Discharge Statement: "Patient was advised to return to the ER or call 911 if any headaches, dizziness, shortness of breath, chest pain, abdominal pain, bleeding, fevers, or worsening of medical condition. Patient was counseled about treatment plan, medications, possible side effects, patientverbalized understanding. All questions were answered to the best of my ability. This discharge took greater then 30 minutes in planning, reviewing documentation, counseling the patient, and discussing with other team members." MARITO ODELL DO Mar 25, 2024 07:52
== END 2024-03-22 10:24 | disposition home or self-care (01) ==
LOC: LDRP 08:53
PROVIDERS: ADMIT Obstetrics & Gynecology; ATTEND Obstetrics & Gynecology
DX: O24.419 Gestational diabetes mellitus in pregnancy, unspecified control (principal); Z3A.37 37 weeks gestation of pregnancy; Z79.899 Other long term (current) drug therapy; Z87.891 Personal history of nicotine dependence
CPT/HCPCS: 59025; 76818; 81002; 82962; 94760; G0378

== ENCOUNTER 2024-04-04 17:10 | Inpatient (IN) | payer OTHER ==
[~2024-04-04] VITALS: Ht 154.9 cm; Wt 79.8 kg
[2024-04-04] MEDS ORDERED: LIDOCAINE 2%HCL (LOCAL ANESTH.) INJ 20ML MDV IJ PRN (17:30)
[2024-04-04 18:09] LABS: Basophils # (auto) 0 10 ^3/uL (0-0.2); Basophils % (auto) 0.4 % (0.0-2.0); Eosinophils # (auto) 0.2 10 ^3/uL (0-0.8); Hematocrit 34.4 % (36.0-46.0); Hemoglobin 11.4 g/dL (12.2-16.2); Lymphocytes # (auto) 2.1 10 ^3/uL (0.4-5.4); Lymphocytes % (auto) 24.1 % (10.0-50.0); Mean Corpuscular Hemoglobin 30.4 pg (28.0-32.0); Mean Corpuscular Hgb Conc. 33.1 g/dL (32.0-36.0); Mean Corpuscular Volume 91.7 fL (80.0-100.0); Monocytes # (auto) 0.6 10 ^3/uL (0-1.3); Monocytes % (auto) 6.8 % (0.0-12.0); Neutrophils # (auto) 5.7 10 ^3/uL (1.6-8.6); Neutrophils % (auto) 66.7 % (37.0-80.0); Platelet Count (auto) 257 10^3/uL (140-450); Red Blood Cells 3.75 10^6/uL (4.0-5.20); White Blood Cell 8.6 10^3/uL (4.4-10.8)
[2024-04-04 18:16] LABS: Urine Bacteria FEW /hpf (None Seen); Urine Blood Negative /uL (Negative); Urine Clarity Clear (Clear); Urine Color Colorless (Yellow); Urine Protein, UAD Negative (Negative); Urine Specific Gravity 1.003 (1.001-1.035); Urine Urobilinogen Normal (Negative); Urine WBC <1 /hpf (0 - 5); Urine pH 6.5 (5.0-9.0)
[2024-04-04 18:25] LABS: Partial Thromboplastin Time 25.9 SEC (24.5-34.5); Prothrombin Time 10.6 sec (9.3-11.8)
[2024-04-04 18:27] LABS: Amphetamine Screen, Urine Neg (NEGATIVE); Barbiturate Scree,Urine Neg (NEGATIVE); Benzodiazephine Screen, Urine Neg (NEGATIVE); Cannabinoid Screen, Urine Neg (NEGATIVE); Cocaine Screen, Urine Neg (NEGATIVE); Opiate Scree,Urine Neg (NEGATIVE); Phencyclidine Screen, Urine Neg (NEGATIVE)
[2024-04-04 18:27] LABS: Albumin 3.7 g/dL (3.2-4.8); Anion Gap 10 (5-15); BUN/Creatinine Ratio 7.6 (10.0-20.0); Bilirubin, Total 0.4 mg/dL (0.2-1.0); Calcium 9.5 mg/dL (8.7-10.4); Carbon Dioxide 22 mmol/L (20-31); Potassium 3.7 mmol/L (3.5-5.1); Sodium 140 mmol/L (136-145); Total Protein 6.2 g/dL (5.7-8.2)
[2024-04-04 18:28] LABS: Alanine Aminotransferase < 9 U/L (7-40); Alkaline Phosphatase 156 U/L (46-116); Aspartate Aminotransferase 11 U/L (13-40); Blood Urea Nitrogen 5 mg/dL (9-23); Chloride 108 mmol/L (98-107); Glucose 111 mg/dL (74-106)
[2024-04-04] MEDS ORDERED: DINOPROSTONE 10MG VAG SUPP PV ONE (19:45)
[2024-04-04] MEDS: miSOPROStol 50 MCG per PRE-CUT 1/2 TAB PO PRN (20:12)
--- NOTE | 2024-04-04 20:17 | DVHHP2 ---
OB CC & HPI Date Date of Admission: Apr 04, 2024 Patient Identification: : 5 Para: 3 EGA: 39.1 Chief Complaints: Reason for admission: induction of labor Indication for induction: medical complication (GDM) History of Present Complaints 38y IUP 39.1 wk admitted for labor induction due to GDM AMA Hx of prior PTD x 1 Denies any symptoms of labor. GBS neg Past Medical History Cardiac: No pertinent Hx Pulmonary: No pertinent Hx Central Nervous System: No pertinent Hx GI: No pertinent Hx Hemotology/Oncology: No pertinent Hx Hepatobiliary: No pertinent Hx Psychiatric: No pertinent Hx Musculoskeletal: No pertinent Hx Rheumotologic: No pertinent Hx Infectious Disease: No peritnent Hx ENT: No pertinent Hx Renal/: No pertinent Hx Endocrine: No pertinent Hx Dermatology: No pertinent Hx Past Surgical History: No pertinent Hx OB History OB History Care: Good Care Ultrasounds: Normal mid trimester US Obstetrical Complications: Gestational Diabetes Medical Complications: None Allergies: Coded Allergies: NO KNOWN ALLERGIES (Unverified , 03/02/20) Home Meds Reported Medications Aspirin (Aspir-Low) 81 Mg Tab, 81 MG PO DAILY for 30 Days, MG 02/25/24 Metformin Hydrochloride (Metformin Hcl) 500 Mg Tab, 500 MG PO BID for 30 Days, MG 02/14/24 Vit W/ Ferrous Fumara ( One Daily) Daily Tab, 1 TAB PO DAILY, #90 TAB 3 Refills 12/25/22 Current Medications Current Medications Medications (Trade) Dose Ordered Sig/Jason Route PRN Reason Start Time Stop Time Status Last Admin Lactated Ringer's 1,000 ml @ 125 mls/hr Q8H IV 04/04/24 17:30 Witcornelio Ritchieel (Tucks) 1 pad PRN PRN TOP PERINEAL AREA DISCOMFORT 04/04/24 17:30 Sodium Lauryl Sulfate (Phisoderm) 240 ml PRN PRN TOP PERINEAL AREA DISCOMFORT 04/04/24 17:30 Benzocaine (Dermoplast) 1 applic PRN PRN TOP PERINEAL AREA DISCOMFORT 04/04/24 17:30 Lidocaine HCl (Xylocaine) 40 ml ONCE PRN IJ PERINEAL AREA DISCOMFORT 04/04/24 17:30 Misoprostol (Cytotec) 50 mcg Q4HPRN PRN PO CERVICAL RIPENING 04/04/24 18:00 Family & Social History Family/Social History Blood Type: O+ Rubella: immune RPR/VDRL: Negative GBS Status: Negative HBsAG: Negative Review of Systems Constitutional: No symptom reported Ears, Nose, & Throat: No symptom reported Eyes: No symptom reported Pulmonary/Respiratory: No symptom reported Cardiovascular: No symptom reported Gastrointestinal: No symptom reported Genitourinary: No symptom reported Musculoskeletal: No symptom reported Skin: No symptom reported Psychiatric: No symptom reported Endocrine: No symptom reported Hemotologic/Lymphatic: No symptom reported OB Admission Exam Physical Exam HEENT: TMs Normal, Fontanelles Normal, Nasal Mucosa Normal, Eyes non-injected, Oropharynx Normal, PERRLA, Moist Membranes, EOMI Heart: Rhythm Normal Lungs: Clear Abdomen: Gravid Extremities: Normal Reflexes: Normal Effacement: 0% Station: -3 Membranes: Intact Heart Rate: 130's Accelerations: Accelerations Present Decelerations: No Decelerations Short Term Variability: Present Certified Orthotist/Pedorthist Variability: Average (6-25) Contractions on Admission: >10 Minutes Apart Intensity: Mild OB Plan Plan Admitting Diagnosis: Term IUP GDMA2, Induction of Labor Induction Methd: Misoprostol protocol Other Plan: Admit for labor induction Informed consent obtained MALLORY ROMERO DO Apr 04, 2024 20:17
[2024-04-04] MEDS ORDERED: ePHEDrine SULFATE 50 MG/ML AMP IV ONE (22:15)
[2024-04-04] MEDS ORDERED: LIDOCAINE HCL 2 %PF INJ 10ML AMP IJ ONE (22:15)
[2024-04-04] MEDS ORDERED: NALOXONE HCL 0.4 MG/ML VIAL IV ONE (22:15)
[2024-04-04] MEDS: ROPIVACAINE HCL 200 ML ONE (23:07)
[2024-04-04] MEDS: LACTATED RINGER'S 1,000 ML IV ONE (23:08)
[2024-04-04] MEDS: LACTATED RINGER'S 1,000 ML IV SCH (23:09)
--- NOTE | 2024-04-05 01:47 | LDN2 ---
Labor and Delivery Note Date 04/05/24 Age 38 5 Para 4 AB 1 EGA 39.2 Diagnosis Induction of labor for GDMA2, s/p Vaginal Delivery: VTX Vacuum Assisted: No Placenta: Spontaneous Sex: Female Weight Pending Apgars 8/9 Amniotic Fluid: Clear Anesthesia Epidural Episiotomy: No Repaired with N/A , no lacerations Perineum intact EBL 100 mL Labs Laboratory Tests 04/04/24 17:49: HIV (1&2) Antibody Negative 09/26/23 13:01: Hepatitis B Surface Antigen Negative, Rubella Antibody Positive Blood Bank 04/04/24 17:49: Blood Type O POSITIVE Complications None MALLORY ROMERO DO Apr 05, 2024 01:47
[2024-04-05] MEDS: LACT. RINGERS/OXYTOCIN 20UNITS 500 ML IV ONE ×2 (01:50→05:00)
[2024-04-05] MEDS: PHISODERM TOP SOLN 240ML BTL TOP PRN (01:51)
[2024-04-05] MEDS: DERMOPLAST 60ML BOTTLE TOP PRN (01:51)
[2024-04-05] MEDS: WITCH HAZEL-GLYCERIN PAD TOP PRN (01:51)
[2024-04-05] MEDS ORDERED: ONDANSETRON ODT 4 MG TAB PO PRN (04:45)
[2024-04-05] MEDS: IBUPROFEN 800 MG TAB PO SCH (06:00)
[2024-04-05 06:37] VITALS: BP 112/59; PULSE 72; RESP 18; TEMP 98.5; O2SAT 96
[2024-04-05 12:47] VITALS: BP 127/61; PULSE 71; RESP 18; TEMP 98; O2SAT 96
[2024-04-05 19:15] VITALS: BP 121/67; PULSE 71; RESP 16; TEMP 97.7; O2SAT 97
[2024-04-05] MEDS: ACETAMINOPHEN 325 MG TAB PO PRN (20:01)
--- NOTE | 2024-04-05 21:15 | DVHINCON2 ---
Date of service: Apr 05, 2024 Allergies: Coded Allergies: NO KNOWN ALLERGIES (Unverified , 03/02/20) Home Meds Reported Medications Aspirin (Aspir-Low) 81 Mg Tab, 81 MG PO DAILY for 30 Days, MG 02/25/24 Metformin Hydrochloride (Metformin Hcl) 500 Mg Tab, 500 MG PO BID for 30 Days, MG 02/14/24 Vit W/ Ferrous Fumara ( One Daily) Daily Tab, 1 TAB PO DAILY, #90 TAB 3 Refills 12/25/22 Current Medications Current Medications Medications (Trade) Dose Ordered Sig/Jason Route PRN Reason Start Time Stop Time Status Last Admin Acetaminophen (Tylenol Tablet) 650 mg Q4HP PRN PO MILD PAIN (1-3 PAIN SCALE) 04/05/24 04:45 04/05/24 20:01 Ondansetron HCl (Zofran Po) 4 mg Q4HPRN PRN PO NAUSEA / VOMITING 04/05/24 04:45 04/05/24 18:27 DC Ibuprofen (Motrin Tablet) 800 mg Q6HR PO 04/05/24 05:00 04/05/24 18:24 Vital Signs Vital Signs Date Time Temp Pulse Resp B/P (MAP) Pulse Ox O2 Delivery O2 Flow Rate FiO2 04/05/24 19:15 97.7 71 16 121/67 (85) 97 97.7 04/05/24 06:51 Room Air Labs/Diagnostic Data Labs Test 04/04/24 21:49 04/04/24 17:49 04/04/24 17:40 Range/Units POC Glucose 80 70-106 mg/dl White Blood Count 8.6 4.4-10.8 10^3/uL Red Blood Count 3.75 L 4.0-5.20 10^6/uL Hemoglobin 11.4 L 12.2-16.2 g/dL Hematocrit 34.4 L 36.0-46.0 % Mean Corpuscular Volume 91.7 80.0-100.0 fL Mean Corpuscular Hemoglobin 30.4 28.0-32.0 pg Mean Corpuscular Hemoglobin Concent 33.1 32.0-36.0 g/dL Red Cell Distribution Width 14.0 11.8-14.3 % Platelet Count 257 140-450 10^3/uL Mean Platelet Volume 8.9 6.9-10.8 fL Neutrophils (%) (Auto) 66.7 37.0-80.0 % Lymphocytes (%) (Auto) 24.1 10.0-50.0 % Monocytes (%) (Auto) 6.8 0.0-12.0 % Eosinophils (%) (Auto) 2.0 0.0-7.0 % Basophils (%) (Auto) 0.4 0.0-2.0 % Neutrophils # (Auto) 5.7 1.6-8.6 10 ^3/uL Lymphocytes # (Auto) 2.1 0.4-5.4 10 ^3/uL Monocytes # (Auto) 0.6 0-1.3 10 ^3/uL Eosinophils # (Auto) 0.2 0-0.8 10 ^3/uL Basophils # (Auto) 0 0-0.2 10 ^3/uL Nucleated Red Blood Cells 0.0 % Prothrombin Time 10.6 9.3-11.8 sec Prothrombin Time INR 1.00 0.9-1.15 Activated Partial Thromboplast Time 25.9 24.5-34.5 SEC Sodium Level 140 136-145 mmol/L Potassium Level 3.7 3.5-5.1 mmol/L Chloride Level 108 H 98-107 mmol/L Carbon Dioxide Level 22 20-31 mmol/L Anion Gap 10 5-15 Blood Urea Nitrogen 5 L 9-23 mg/dL Creatinine 0.66 0.550-1.02 mg/dL Glomerular Filtration Rate Calc 117 >90 mL/min BUN/Creatinine Ratio 7.6 L 10.0-20.0 Serum Glucose 111 H 74-106 mg/dL Calcium Level 9.5 8.7-10.4 mg/dL Total Bilirubin 0.4 0.2-1.0 mg/dL Aspartate Amino Transferase (AST) 11 L 13-40 U/L Alanine Aminotransferase (ALT) < 9 7-40 U/L Alkaline Phosphatase 156 H 46-116 U/L Total Protein 6.2 5.7-8.2 g/dL Albumin 3.7 3.2-4.8 g/dL HIV (1&2) Antibody Negative Negative Urine Color Colorless Yellow Urine Clarity Clear Clear Urine pH 6.5 5.0-9.0 Urine Specific Tracy 1.003 1.001-1.035 Urine Protein Negative Negative Urine Ketones Negative Negative Urine Blood Negative Negative /uL Urine Nitrite Negative Negative Urine Bilirubin Negative Negative Urine Urobilinogen Normal Negative mg/dL Urine Leukocyte Esterase 2+ Negative /uL Urine RBC 1 0 - 4 /hpf Urine WBC <1 0 - 5 /hpf Urine Squamous Epithelial Cells Few <5 /hpf Urine Bacteria Few H None Seen /hpf Urine Glucose Normal Normal mg/dL Urine Opiates Screen Neg NEGATIVE Urine Fentanyl Screen Neg NEGATIVE Urine Barbiturates Screen Neg NEGATIVE Urine Phencyclidine Screen Neg NEGATIVE Urine Amphetamines Screen Neg NEGATIVE Urine Benzodiazepines Screen Neg NEGATIVE Urine Cocaine Screen Neg NEGATIVE Urine Cannabinoids Screen Neg NEGATIVE Assessment GUIDANCE COUNSELOR arrives at the bedside per request of RN related to patient complained of back pain that also shoots down her legs when ambulating. Patient received an epidural the previous day for labor and delivery purposes. She delivered uneventfully. GUIDANCE COUNSELOR arrives in room and has patient sitting at the bedside. Upon exam, it was noted that there are two holes where it is presumed of the epidural needle was placed, the 1st one was placed around the L3-L4 level and the 2nd around the L2-L3 level. There is a noted bruising and small hematoma at the 1st level and nothing at the 2nd. The patient notes both spots to be tender, but the 1st spot to be more tender than the 2nd. The final placement of the epidural catheter was noted to be at the 2nd spot. Upon discussion, the patient states that when trying to ambulate, every once in awhile when she would turn, she would feel a tightening in her back that also ran down both legs. She states that she did not feel any Zing, or lightening bolt feeling. As a result, it was discussed with the patient that due to multiple epidural attempts, the nature of the placement, the type of needle used, and her present status, that it does not appear to be a nerve issue, that it appears to be a muscle/tissue issue that should be resolved with continued ambulation that we want to be comfortable. She is instructed, as is the bedside RN, to treat pain with Tylenol or ibuprofen before ambulating and to place a heating pad on the sites the back when she is still in bed. Questions were sought and answered. The patient and spouse state their understanding of the plan and accepted. Plan discussed with: Patient, Spouse ASEEDHANSASHAUN Chin CRNA Apr 05, 2024 21:15
[2024-04-06 00:44] VITALS: BP 117/59; PULSE 68; RESP 18; TEMP 97.7; O2SAT 97
[2024-04-06 03:20] VITALS: BP 102/50; PULSE 63; RESP 14; TEMP 97.8; O2SAT 97
[2024-04-06 03:49] LABS: Basophils # (auto) 0 10 ^3/uL (0-0.2); Basophils % (auto) 0.3 % (0.0-2.0); Eosinophils # (auto) 0.3 10 ^3/uL (0-0.8); Eosinophils % (auto) 2.4 % (0.0-7.0); Hematocrit 32.7 % (36.0-46.0); Hemoglobin 10.8 g/dL (12.2-16.2); Lymphocytes # (auto) 2.9 10 ^3/uL (0.4-5.4); Lymphocytes % (auto) 24.1 % (10.0-50.0); Mean Corpuscular Hemoglobin 30.4 pg (28.0-32.0); Mean Corpuscular Volume 92.2 fL (80.0-100.0); Monocytes # (auto) 0.7 10 ^3/uL (0-1.3); Neutrophils % (auto) 67.2 % (37.0-80.0); Platelet Count (auto) 220 10^3/uL (140-450); Red Blood Cells 3.55 10^6/uL (4.0-5.20); Red Cell Distribution Width 14.5 % (11.8-14.3); White Blood Cell 11.9 10^3/uL (4.4-10.8)
[2024-04-06 07:00] VITALS: BP 124/60; PULSE 79; RESP 16; TEMP 97.4; O2SAT 97
[2024-04-06] MEDS ORDERED: IBUP-1455 PO (07:02)
--- NOTE | 2024-04-06 07:04 | DVHDS2 ---
Physician Discharge Progress N Final Diagnosis: Term , GDMA2, Induction of labor with vaginal delivery uncomplicated Operations or Procedures: Operations or Procedures Induction of labor with Commentary: Commentary Normal labor and delivery Normal course Condition on Discharge: Stable Disposition: Home Discharge Instructions: Diet: Regular Activity: Light activity Activity comment: Pelvic rest x 6 weeks Follow Up/Referral: OB clinic in 2 wk Medications: Ibuprofen 800mg eRx given Follow Up Care: Discharge Statement: "Patient was advised to return to the ER or call 911 if any headaches, dizziness, shortness of breath, chest pain, abdominal pain, bleeding, fevers, or worsening of medical condition. Patient was counseled about treatment plan, medications, possible side effects, patientverbalized understanding. All questions were answered to the best of my ability. This discharge took greater then 30 minutes in planning, reviewing documentation, counseling the patient, and discussing with other team members." MALLORY ROMERO DO Apr 06, 2024 07:04
--- NOTE | 2024-04-06 07:05 | DVHPN2 ---
Progress Note Date Seen: Apr 06, 2024 Subjective PPD#1 s/p , GDMA2 (delivered) NO complaints. vital signs Vital Sign Date Time Temp Pulse Resp B/P (MAP) Pulse Ox O2 Delivery O2 Flow Rate FiO2 04/06/24 03:20 97.8 63 14 102/50 (67) 97 97.8 04/05/24 19:00 Room Air Total Intake and Output 04/05/24 04/05/24 04/06/24 15:00 23:00 07:00 Output Total 500 ml 500 ml Balance -500 ml -500 ml medications Current Medications Medications Dose Ordered Sig/Jason Route Start Time Stop Time Status Last Admin Dose Admin Witch Lacey 1 pad PRN PRN TOP 04/04/24 17:30 04/05/24 01:51 1 PAD Sodium Lauryl Sulfate 240 ml PRN PRN TOP 04/04/24 17:30 04/05/24 01:51 240 ML Benzocaine 1 applic PRN PRN TOP 04/04/24 17:30 04/05/24 01:51 1 APPLIC Lidocaine HCl 40 ml ONCE PRN IJ 04/04/24 17:30 Cancel Acetaminophen 650 mg Q4HP PRN PO 04/05/24 04:45 04/05/24 20:01 650 MG Ibuprofen 800 mg Q6HR PO 04/05/24 05:00 04/06/24 00:04 800 MG laboratory and microbiology Laboratory Tests 04/06/24 03:36 04/04/24 17:49 Test 04/04/24 17:49 Range/Units Serum Glucose 111 H 74-106 mg/dL Objective O: AFVSS Chest: heart and lung sounds normal. Abd soft, non-tender, fundus firm, BS, no rebound or guarding, Ext Neg Homans, Non-tender, edema Lochia - minimal Labs Reviewed Assessment/Plan PPD#1 s/p Plan D/C planning F/U in office x 2 wk Plan discussed with: Patient, Spouse MALLORY ROMERO Apr 06, 2024 07:05
[2024-04-06 11:05] VITALS: BP 155/74; PULSE 67; RESP 17; TEMP 97.9; O2SAT 98
== END 2024-04-06 12:00 | disposition home or self-care (01) | DRG 806 ==
LOC: LDRP 17:10
PROVIDERS: ADMIT Obstetrics & Gynecology; ATTEND Obstetrics & Gynecology
PROC: 10E0XZZ Delivery of Products of Conception, External Approach (ICD-10-PCS; principal; 2024-04-06)
PROC: 3E0R3BZ Introduction of Anesthetic Agent into Spinal Canal, Percutaneous Approach (ICD-10-PCS; 2024-04-06)
PROC: 00HU33Z Insertion of Infusion Device into Spinal Canal, Percutaneous Approach (ICD-10-PCS; 2024-04-06)
DX: O24.429 Gestational diabetes mellitus in childbirth, unspecified control (principal); O71.7 Obstetric hematoma of pelvis; Z37.0 Single live birth; Z3A.39 39 weeks gestation of pregnancy
CPT/HCPCS: 36415; 59025; 59409; 62282; 80053; 80307; 81001; 82948; 82962; 85025; 85610; 85730; 86592; 86703; 86780; 86850; 86900; 86901; 94760; 96360; 96361; 96365; 96366; G0378; J2590